=== PATIENT | female | born 1990 | race Caucasian/White ===

== ENCOUNTER 2020-08-29 12:34 | Emergency (ER) | payer SELFPAY ==
[~2020-08-29] VITALS: Ht 167.6 cm; Wt 68.0 kg
--- NOTE | 2020-08-29 12:45 | NUR ---
BIBS for lower back pain s/p slip and fall in shower last night. Rates pain 5/10. Abdomen soft and non-distended. Will continue to monitor
[2020-08-29] MEDS ORDERED: KETOROLAC TROMETHAMINE INJ 30 MG/ML VIAL ONE (13:11)
[2020-08-29] MEDS ORDERED: DIAZEPAM 5 MG TABLET ONE (13:11)
[2020-08-29] MEDS: DIAZEPAM 5 MG TABLET PO ONE (13:18)
[2020-08-29] MEDS: KETOROLAC TROMETHAMINE INJ 60 MG/2 ML VIAL IM ONE (13:18)
--- NOTE | 2020-08-29 13:20 | NUR ---
THE PATIENT IS TAKEN TO CT
--- NOTE | 2020-08-29 13:26 | NUR ---
THE PATIENT IS BACK FROM CT
[2020-08-29] MEDS ORDERED: METH-647 GT (13:48)
[2020-08-29] MEDS ORDERED: IBUP-1957 PO (13:48)
--- NOTE | 2020-08-29 14:23 | NUR ---
Patient discharged to home in stable condition. Written and verbal after care instructions given. Patient verbalizes understanding of instruction.
[2020-08-29 14:25] VITALS: BP 131/80
== END 2020-08-29 14:25 | disposition home or self-care (01) ==
LOC: ER 12:40
DX: S39.012A Strain of muscle, fascia and tendon of lower back, initial encounter (principal); M54.16 Radiculopathy, lumbar region; W01.0XXA Fall on same level from slipping, tripping and stumbling without subsequent striking against object, initial encounter; Y93.89 Activity, other specified; Y92.091 Bathroom in other non-institutional residence as the place of occurrence of the external cause; Y99.8 Other external cause status
CPT/HCPCS: 72131; 96372; 99284; J1885